=== PATIENT | male | born 1985 | race Caucasian/White ===

== ENCOUNTER 2016-11-01 13:17 | Emergency (ER) | payer BC, OTHER ==
[2016-11-01] MEDS ORDERED: Famotidine 20 MG/2 ML SDV IVPUSH ONE (13:36)
[2016-11-01] MEDS ORDERED: Aspirin 81 MG Tab.Chew PO ONE (13:36)
[2016-11-01] MEDS ORDERED: Nitroglycerin 0.4 MG Tab.SL SL ONE (13:36)
[2016-11-01] MEDS ORDERED: Ketorolac 30 MG/ML SDV IVPUSH ONE (13:36)
[2016-11-01] MEDS ORDERED: Alum Hydrox/Mag Hydrox/Simeth 15 ML, Metoclopramide 5 MG, Lidocaine 2% 5 ML PO ONE ×3 (13:36)
--- NOTE | 2016-11-01 13:36 | EDM.PDOC ---
ED HPI GENERAL MEDICAL PROBLEM - General Chief Complaint: Chest Pain Stated Complaint: chest pain and left arm pain Time Seen by Provider: 11/01/16 13:24 Source of Information: Reports: Patient History Limitations: Reports: No Limitations - History of Present Illness INITIAL COMMENTS - FREE TEXT/NARRATIVE: History of present illness: [31-year-old male comes in complaining of left wall chest pain radiating down into left arm. Patient indicates this has been going on for a couple hours and so he felt he should come in. Patient indicates that he did drink to passing out last night secondary to his 's birthday and that he might in fact be slightly hangover but that he has never had this pain before. Patient indicates that he does smoke and drink and that his grandfather had several heart attacks before passing away.] Review of systems: As per history of present illness and below otherwise all systems reviewed and negative. Past medical history: As per history of present illness and as reviewed below otherwise noncontributory. Surgical history: As per history of present illness and as reviewed below otherwise noncontributory. Social history: No reported history of drug or alcohol abuse. Family history: As per history of present illness and as reviewed below otherwise noncontributory. Physical exam: HEENT: Atraumatic, normocephalic, pupils reactive, negative for conjunctival pallor or scleral icterus, mucous membranes moist, throat clear, neck supple, nontender, trachea midline. Lungs: Clear to auscultation, breath sounds equal bilaterally, chest nontender. Heart: S1S2, regular, negative for clicks, rubs, or JVD. Abdomen: Soft, nondistended, nontender. Negative for masses or hepatosplenomegaly. Negative for costovertebral tenderness. Pelvis: Stable nontender. Genitourinary: Deferred. Rectal: Deferred. Extremities: Atraumatic, negative for cords or calf pain. Neurovascular unremarkable. Neuro: Awake, alert, oriented. Cranial nerves II through XII unremarkable. Cerebellum unremarkable. Motor and sensory unremarkable throughout. Exam nonfocal. Patient given 1 nitroglycerin sublingual with chest wall pain diminished to where patient states it is not pain normal pressure he can just feel his heart which usually is not his baseline. Patient also states he feels like he just has a very bad hangover. Admission for observation discussed with patient, patient declined admission. Risks and benefits discussed with patient and he verbalized understanding but continued to decline admission. Patient agreed he would return if the pain returned and/or got worse. Diagnostics: [CBC, CMP, troponin, EKG, chest x-ray] Therapeutics: [IV fluid, Nitro-Tab] Impression: [Atypical chest pain] Plan: [Primary care provider return if any concerns] Definitive disposition and diagnosis as appropriate pending reevaluation and review of above. - Related Data Allergies Allergy/AdvReac Type Severity Reaction Status Date / Time No Known Allergies Allergy Verified 03/05/14 13:52 Home Meds: Home Meds Hydrocort/Neomycin/Polymyxin B [Cortisporin Otic Soln] 4 drop EARRT TID #1 bottle 03/05/14 [Rx] Past Medical History - Past Health History Medical/Surgical History: Denies Medical/Surgical History Social & Family History - Tobacco Use Smoking Status *Q: Current Every Day Smoker Years of Tobacco use: 10 - Alcohol Use Days Per Week of Alcohol Use: 2 Number of Drinks Per Day: 6 Total Drinks Per Week: 12 - Recreational Drug Use Recreational Drug Use: No ED ROS GENERAL - Review of Systems Review Of Systems: See Below (See history of present illness) ED EXAM, GENERAL - Physical Exam Exam: See Below (See history of present illness) Course - Vital Signs Last Recorded V/S: Last Vital Signs Temp 37.1 C 11/01/16 13:47 Pulse 84 11/01/16 13:47 Resp 18 11/01/16 13:47 BP 133/82 11/01/16 13:51 Pulse Ox 97 11/01/16 13:47 - Orders/Labs/Meds Orders: Active Orders 24 hr Category Date Time Status Cardiac Monitoring [RC] . DIRECTED Care 11/01/16 13:36 Ordered EKG Documentation Completion [RC] STAT Care 11/01/16 13:36 Ordered Saline Lock Insert [OM.PC] Stat Oth 11/01/16 13:36 Ordered Labs: Laboratory Tests 11/01/16 11/01/16 11/01/16 Range/Units 13:45 13:45 13:45 WBC 4.86 (4.0-11.0) K/uL RBC 4.91 (4.50-5.90) M/uL Hgb 16.3 (13.0-17.0) g/dL Hct 46.4 (38.0-50.0) % MCV 94.5 (80.0-98.0) fL MCH 33.2 H (27.0-32.0) pg MCHC 35.1 (31.0-37.0) g/dL RDW Std Deviation 46.6 (28.0-62.0) fl RDW Coeff of Vita 14 (11.0-15.0) % Plt Count 174 (150-400) K/uL MPV 11.10 (7.40-12.00) fL Neut % (Auto) 47.9 L (48.0-80.0) % Lymph % (Auto) 30.5 (16.0-40.0) % Pacific % (Auto) 14.8 (0.0-15.0) % Eos % (Auto) 5.6 (0.0-7.0) % Baso % (Auto) 1.2 (0.0-1.5) % Neut # (Auto) 2.3 (1.4-5.7) K/uL Lymph # (Auto) 1.5 (0.6-2.4) K/uL Pacific # (Auto) 0.7 (0.0-0.8) K/uL Eos # (Auto) 0.3 (0.0-0.7) K/uL Baso # (Auto) 0.1 (0.0-0.1) K/uL Nucleated RBC % 0.0 /100WBC Nucleated RBCs # 0 K/uL Sodium 141 (136-146) mmol/L Potassium 3.7 (3.5-5.1) mmol/L Chloride 107 (98-110) mmol/L Carbon Dioxide 19 L (21-31) mmol/L BUN 7 (6.0-23.0) mg/dL Creatinine 1.0 (0.6-1.5) mg/dL Est Cr Clr Drug Dosing TNP Estimated GFR (MDRD) > 60.0 ml/min Glucose 109 (60-110) mg/dL Calcium 9.1 (8.8-10.8) mg/dL Total Bilirubin 0.4 (0.1-1.5) mg/dL AST 31 (5-40) IU/L ALT 23 (8-54) IU/L Alkaline Phosphatase 51 (40-150) Troponin I < 0.10 (0.0-0.29) NG/ML Total Protein 7.7 (6.0-8.0) g/dL Albumin 4.3 (3.5-5.0) g/dL Globulin 3.4 (2.0-3.5) g/dL Albumin/Globulin Ratio 1.3 (1.3-2.8) Amylase 25 (10-90) U/L Lipase 57 (7-80) U/L Meds: Medications Discontinued Medications Generic Name Dose Route Start Last Admin Trade Name Joyce PRN Reason Stop Dose Admin Aspirin 324 mg 11/01/16 13:36 Aspirin PO 11/01/16 13:37 ONETIME ONE Al Hydroxide/Mg Hydroxide 15 0 ml 11/01/16 13:36 11/01/16 13:51 ml/ Metoclopramide HCl 5 mg/ PO 11/01/16 13:37 1 each Lidocaine HCl 5 ml ONETIME ONE Administration Famotidine 20 mg 11/01/16 13:36 11/01/16 13:52 Pepcid IVPUSH 11/01/16 13:37 20 mg ONETIME ONE Administration Ketorolac Tromethamine 30 mg 11/01/16 13:36 11/01/16 13:52 Toradol IVPUSH 11/01/16 13:37 30 mg ONETIME ONE Administration Nitroglycerin 0.4 mg 11/01/16 13:36 11/01/16 13:51 Nitrostat SL 11/01/16 13:37 0.4 mg ONETIME ONE Administration Departure - Departure Time of Disposition: 14:57 Disposition: Home, Self-Care 01 Condition: Good Clinical Impression: Atypical chest pain Forms: ED Department Discharge Additional Instructions: The following information is given to patients seen in the emergency department who are being discharged to home. This information is to outline your options for follow-up care. We provide all patients seen in our emergency department with a follow-up referral. The need for follow-up, as well as the timing and circumstances, are variable depending upon the specifics of your emergency department visit. If you don't have a primary care physician on staff, we will provide you with a referral. We always advise you to contact your personal physician following an emergency department visit to inform them of the circumstance of the visit and for follow-up with them and/or the need for any referrals to a consulting specialist. The emergency department will also refer you to a specialist when appropriate. This referral assures that you have the opportunity for follow-up care with a specialist. All of these measure are taken in an effort to provide you with optimal care, which includes your follow-up. Under all circumstances we always encourage you to contact your private physician who remains a resource for coordinating your care. When calling for follow-up care, please make the office aware that this follow-up is from your recent emergency room visit. If for any reason you are refused follow-up, please contact the [facility] Emergency Department at and asked to speak to the emergency department charge nurse. Follow-up with your primary care provider went to days If any chest pressure or pain returns please return as discussed Return to ED as needed as discussed - My Orders Last 24 Hours: My Active Orders 11/01/16 13:36 Cardiac Monitoring [RC] . DIRECTED EKG Documentation Completion [RC] STAT Saline Lock Insert [OM.PC] Stat - Assessment/Plan Last 24 Hours: My Active Orders 11/01/16 13:36 Cardiac Monitoring [RC] . DIRECTED EKG Documentation Completion [RC] STAT Saline Lock Insert [OM.PC] Stat
[2016-11-01 14:19] LABS: CHLORIDE,CL 107 mmol/L (98-110); SODIUM,NA 141 mmol/L (136-146)
--- NOTE | 2016-11-01 14:28 | CR ---
EXAMINATION: Two-view chest (PA and Lateral views). HISTORY: Chest pain. FINDINGS: The trachea is midline. The cardiomediastinal silhouette is within normal limits. No pulmonary infil trates, effusions or pneumothorax. Osseous structures appear unremarkable. IMPRESSION: No acute cardiopulmonary process.
== END 2016-11-01 15:23 | disposition home or self-care (01) ==
LOC: MW.ED 13:17
DX: R07.89 Other chest pain (principal); F17.200 Nicotine dependence, unspecified, uncomplicated
CPT/HCPCS: 36415; 71020; 80053; 82150; 83690; 84484; 85025; 93005; 96374; 96375; 99285; A9270; J1885; 99283